=== PATIENT | female | born 1990 | race Caucasian/White ===

== ENCOUNTER 2017-06-25 09:17 | Emergency (ER) | payer MEDICAID ==
[2016-08-24 03:08] VITALS: BMI 41.2
--- NOTE | 2017-06-25 10:13 | OBDCSUM ---
Datetime: 06/25/2017 10:06 Discharged to, Provider: Home Follow up at, Provider: Dr. [place] Disch Instr Activity: Normal activity Disch Instr Diet: Regular Discharge Time: 06/25/2017 10:07 Follow up in weeks, Provider: wednesday 06/27 Disch Referrals: None Disch Activity Restrictions: No lifting Discharge Comment, Provider: lyndsay home metrogel labor given ponhyra f/u in dr [place] office on 06/27 Discharge Diagnosis Prov Other: 37weeks bacterla vaginitis nst
--- NOTE | 2017-06-25 10:14 | OBHP ---
Datetime: 06/25/2017 10:07 IP Adm Impression: Term, intrauterine IP Chief Complaint Other: vaginl discharge IP Admit Plan: Discharge home Admit Comment, IP Provider: at 37+weeks cme wih c/o yelowish dischrge from few days,no vb, lof, +fm. obhx 2 x pmh den med pnv all nkda psh de soch den ssse yellowish whitish discharge,no cmt ve closed//-3 a/p at 37+weeks bacterial vaginitis dc home metrogel labor given ponhyra f/u in dr villasenor office on 06/27 Pelvic Type - PN: Adequate Extremities - PN: Normal Abdomen - PN: Normal Back - PN: Normal Breast - PN: Not Done Lungs - PN: Normal Heart - PN: Normal Thyroid - PN: Not Done Neurologic - PN: Normal HEENT - PN: Normal General - PN: Normal FHR - Baseline A Provider: 130 Contraction Comments Provider: none Comments, ACOG Physical Exam: see yellowish whitish disc,no cmt Vital Signs Provider: Reviewed; Within Normal Limits NICHD Variability Prov Fetus A: Moderate 6-25bpm NICHD Accel Fetus A IP Provider: 15X15 FHR Category Provider Fetus A: Category I NICHD Decel Fetus A IP Provider: None Dilatation, Provider: 0 Effacement, Provider: 0 Station, Provider: -3 Genitourinary Exam: Normal DTRs - PN: Normal
[2017-06-25 18:12] VITALS: BP 120/67; PULSE 94; RESP 20; TEMP 98.2; O2SAT 98
== END 2017-06-25 10:30 | disposition home or self-care (01) ==
LOC: C.EROB 09:17
DX: O23.593 Infection of other part of genital tract in pregnancy, third trimester (principal); Z3A.37 37 weeks gestation of pregnancy

== ENCOUNTER 2017-07-08 09:27 | Emergency (ER) | payer MEDICAID ==
[2016-08-24 03:08] VITALS: BMI 41.2
--- NOTE | 2017-07-08 10:37 | OBHP ---
Datetime: 07/08/2017 09:48 IP Adm Impression: Term, intrauterine IP Admit Plan: Discharge home Admit Comment, IP Provider: Patient is a 26 year old at 39w2d JENNIFER 07/13/17 by LMP presents to L+D for abdominal pain and back pain that started at 6am this monring. Patient states having upper a bdominal pain that is constant in nature. Also states that she lost her mucous plug this morning. End orses +FM, denies VB, LOF. Issues: Denies OB Hx: 1. 2013 at term, female , 8lbs 2oz, no complications 2. 2014 EAB at 8 weeks 3. 2015 at term, female infant, 5lbs, 7oz, no complications [employer] COMEDIAN Hx: LMP - 10/07/16 [facility] - 11 x regular x 7 days Denies hx of fibroids, ovarian cysts, STIs Denies hx of abnormal pap smears Allergies: NKDA Medications: PNV Medical Hx: Denies Surgical Hx: D+C x 1 Social Hx: Denies alcohol, tobacco, drug use; lives with daughters and boyfriend Family Hx: Mother - healthy; Father - healthy; Grandmother - breast CA PE: See above A/P: 26 year old at 39w2d presents with abdominal pain, rule out labor 1. Stable, afebrile 2. Category I tracing 3. Not in labor 4. Increase PO hydration 5. Labor precautions given 6. Follow up with clinic as regularly scheduled 7. Plan d/w attending Nell Cosby Patient examined.agree with residente matt, assessment and plan Oksana Pelvic Type - PN: Adequate Extremities - PN: Normal Abdomen - PN: Normal Back - PN: Normal General - PN: Normal FHR - Baseline A Provider: 130 Contraction Comments Provider: none Comments, ACOG Physical Exam: VSS Gen: AAOx3 Abd: Soft, gravid Ext: No clubbing, cyanosis, edema; no calf tenderness SVE: closed/thick/high EFM: 130, moderate variability, +accels, -decels TOCO: none Gestation - Est Wks by US: 39.2 IP Hx Assessment: The History has been Reviewed and is Current EGA AdmitDate IP: 39.2 Vital Signs Provider: Reviewed; Within Normal Limits IP Chief Complaint: Other NICHD Variability Prov Fetus A: Moderate 6-25bpm NICHD Accel Fetus A IP Provider: 15X15 FHR Category Provider Fetus A: Category I NICHD Decel Fetus A IP Provider: None Dilatation, Provider: closed Effacement, Provider: thick Station, Provider: high Genitourinary Exam: Normal DTRs - PN: Normal
[2017-07-08 14:52] VITALS: BP 101/63; PULSE 82; RESP 18; TEMP 98.3
== END 2017-07-08 10:45 | disposition home or self-care (01) ==
LOC: C.EROB 09:27
DX: O26.893 Other specified pregnancy related conditions, third trimester (principal); R10.10 Upper abdominal pain, unspecified; Z3A.39 39 weeks gestation of pregnancy